=== PATIENT | female | born 1980 | race Hispanic/Latino ===

== ENCOUNTER 2020-02-27 16:20 | Emergency (ER) | payer OTHER, SELFPAY ==
[2020-02-27 16:40] VITALS: BP 100/79; PULSE 76; RESP 16; TEMP 36.8; O2SAT 100
--- NOTE | 2020-02-27 17:16 | ED.URI ---
HPI - URI/Sore Throat General Chief Complaint: Upper Respiratory Infection Stated Complaint: upper respiratory infection Time Seen by Provider: 02/27/20 17:14 Source: patient and RN notes reviewed Mode of arrival: ambulatory Limitations: no limitations History of Present Illness HPI Narrative: 39-year-old female presents with concern for right ear pain for 2 days, sore throat for 4 days and reports nasal congestion, drainage for 4 days as well. Denies fever, cough, malaise. Reports she has been taking Zyrtec with little relief MD elicited complaint: sore throat and other (Ear pain) Related Data Allergies Allergy/AdvReac Type Severity Reaction Status Date / Time No Known Allergies Allergy Verified 02/27/20 16:31 Review of Systems Review of Systems: Narrative: CONSTITUTIONAL: Denies malaise, chills, sweats, or fever. EYES: Denies visual changes, redness, or discharge. ENT: Reports rhinorrhea, congestion, otalgia and sore throat. Denies sinus pain CARDIOVASCULAR: Denies chest pain, palpitations, or edema. RESPIRATORY: Denies cough or dyspnea. GASTROINTESTINAL: Denies abdominal pain, nausea, vomiting, diarrhea SKIN: Denies rash or itching. MUSCULOSKELETAL: Denies myalgia. NEUROLOGIC: Denies headache. All systems reviewed & are unremarkable except as noted in HPI and below PMFSH Social History Social History Gender identity (if verbalized by the patient): Female Comments At time of signature, agree with nursing past medical, surgical, social and family history. There is no relevant family history pertinent to the presenting complaint Exam Narrative: Exam Narrative: GENERAL: Well-appearing, well-nourished, and in no acute distress. HEAD: Normocephalic EYES: PERRLA, conjunctivae clear ENT: Nares clear, turbinates edematous and erythematous, clear discharge. Postnasal drainage noted. Mucous membranes moist. TM pearly alas with dull light reflex bilaterally; no tragal tenderness. Oropharynx erythematous without lesions. Tonsils not enlarged and without exudate, no drooling, no hoarseness, no trismus, uvula midline. NECK: Supple. No lymphadenopathy CHEST: Clear to auscultation, breath sounds equal. No wheezing, rhonchi, rales, or stridor. No respiratory distress, speaks in full sentences. HEART: Regular rate and rhythm. No murmur heard. SKIN: Warm, dry, no rash. NEURO: Alert and oriented x3. PSYCH: Normal mood and affect Course Course Emergency Course: Patient is aware of diagnosis, understands and agrees to treatment plan. Anticipatory guidance given. Patient agrees to follow-up as directed and is aware of reasons to seek care at the emergency department. Portions of this record may have been created with voice recognition software Vital Signs Vital signs: Vital Signs Temperature 98.3 F 02/27/20 16:40 Pulse Rate 76 02/27/20 16:40 Respiratory Rate 16 02/27/20 16:40 Blood Pressure 100/79 02/27/20 16:40 Pulse Oximetry 100 02/27/20 16:40 Temperature 98.3 F 02/27/20 16:40 Pulse Rate 76 02/27/20 16:40 Respiratory Rate 16 02/27/20 16:40 Blood Pressure 100/79 02/27/20 16:40 Pulse Oximetry 100 02/27/20 16:40 Reviewed. MDM - URI/Sore Throat MDM Narrative Medical decision making narrative: Differential diagnosis considered: Strep pharyngitis, allergic rhinitis, upper respiratory tract infection, sinusitis, rhinosinusitis, nasopharyngitis. viral pharyngitis, otitis media, otitis externa, pneumonia, bronchitis, viral cough syndrome, viral syndrome, and influenza. Exam findings show no acute concerns or changes; patient is non-toxic appearing and is in no distress. Patient is appropriate for outpatient treatment and follow-up. Lab Data Attestation: I reviewed the patient's lab results. Labs: Strep Screen Presumptive Negative *(Reference Range: Negative)* Critical Care Time Critical Care Time Critical Care Time: No Discharge Plan Discharge Clinical Impres
== END 2020-02-27 17:28 | disposition home or self-care (01) ==
PROVIDERS: Emergency Provider Nurse Practitioner
DX: J06.9 Acute upper respiratory infection, unspecified (principal)
CPT/HCPCS: 87081; 87880; 99213; G0463

== ENCOUNTER 2020-03-12 01:24 | Emergency (ER) | payer OTHER, SELFPAY ==
--- NOTE | ~2020-03-12 | XR_ITS ---
EXAMINATION: XR lumbar spine 2-3V DATE: 03/12/2020 03:40 INDICATION: Low back pain. TECHNIQUE: 3 views of lumbar spine were obtained. COMPARISON: Lumbar spine radiographs 09/26/2017 FINDINGS: Bone alignment is normal. Vertebral body heights and intervertebral disc heights are normal . The facet joints are unremarkable. There is an intrauterine device in expected position. Surgical c lips in the right upper quadrant are likely from cholecystectomy. IMPRESSION: 1. Normal lumbar spine. Reviewed, dictated and finalized at location A. IMPRESSION: 1. Normal lumbar spine.
[2020-03-12 01:26] VITALS: BP 113/65; PULSE 70; RESP 18; TEMP 37.1; O2SAT 98
--- NOTE | 2020-03-12 03:17 | ED.BACK ---
HPI - Back Pain/Injury General Chief Complaint: Back Pain/Injury Stated Complaint: back pain Time Seen by Provider: 03/12/20 03:11 History of Present Illness HPI Narrative: Patient presents with low back pain for 3 days. Started after she worked out. Radiates down both legs to the feet. She has had back pain before but not this bad. She would rated as a 9 out of 10. She is having difficulty walking. She had to leave work. She took an Aleve without much improvement. She does not have any medical problems. MD elicited complaint: back pain Pertinent past history: prior back pain Onset (ago): day(s) Timing: constant Severity: severe Similar Symptoms Previously: Yes Related Data Allergies Allergy/AdvReac Type Severity Reaction Status Date / Time No Known Allergies Allergy Verified 02/27/20 16:31 Review of Systems Review of Systems: Narrative: CONSTITUTIONAL: Denies fever, chills, or sweats. EYES: Denies visual changes, redness, or discharge. ENT: Denies rhinorrhea, congestion, sore throat, or otalgia. CARDIOVASCULAR: Denies chest pain, palpitations, or edema. RESPIRATORY: Denies cough or dyspnea. GASTROINTESTINAL: Denies abdominal pain, nausea, vomiting, or diarrhea. GENITOURINARY: Denies dysuria or hematuria. SKIN: Denies rash or itching. MUSCULOSKELETAL: She has back pain, with radiation to both legs. NEUROLOGIC: Denies headache, numbness, or weakness. . [facility] Past Medical History Medical History (Updated 03/12/20 @ 03:18 by Cary Gold MD) Sciatica Strain of lumbar region Social History Social History Gender identity (if verbalized by the patient): Female Exam Narrative: Exam Narrative: GENERAL: Well-appearing, well-nourished, and in no acute distress. Slow to move. HEAD: Normocephalic, atraumatic. EYES: PERRLA and EOMI. ENT: Nares clear, no rhinorrhea or epistaxis. Mucous membranes moist. NECK: Supple. CHEST: Clear to auscultation. No respiratory distress. HEART: Regular rate and rhythm. No murmur heard. Normal peripheral pulses. ABDOMEN: Soft, nontender, nondistended, normal active bowel sounds. EXTREMITIES: No edema. SKIN: Warm, dry, no rash. NEURO: No focal deficits. Alert and oriented x3. PSYCH: Normal mood and affect. Back: Tenderness to palpation. Course Reevaluation(s) Reevaluation #1: Went back into check on the patient and tell her the results of her x-rays. They were normal. Her pain is a little bit better. She is ready to call her and go home. Date: 03/12/20 Time: 05:32 Vital Signs Vital signs: Vital Signs Temperature 98.7 F 03/12/20 01:26 Pulse Rate 70 03/12/20 01:26 Respiratory Rate 18 03/12/20 01:26 Blood Pressure 113/65 03/12/20 01:26 Pulse Oximetry 98 03/12/20 01:26 Temperature 98.2 F 03/12/20 04:59 Pulse Rate 76 03/12/20 04:59 Respiratory Rate 16 03/12/20 04:59 Blood Pressure 107/71 03/12/20 04:59 Pulse Oximetry 98 03/12/20 04:59 MDM - Back Pain/Injury Medical Records Attestation: I reviewed the patient's medical records. Imaging Data Attestation: I personally reviewed and interpreted this imaging study as follows: My impression: NAD Discharge Plan Discharge Clinical Impression: Strain of lumbar region Qualifiers: Encounter type: initial encounter Qualified Code(s): S39.012A - Strain of muscle, fascia and tendon of lower back, initial encounter Sciatica Qualifiers: Laterality: bilateral Qualified Code(s): M54.31 - Sciatica, right side Patient Disposition: Home, Self-Care Condition: Stable Prescriptions: New hydrocodone-acetaminophen [Albion] 5-325 mg tablet 1 tablet PO Q4H PRN (Reason: pain) Qty: 10 RF: 0 methocarbamol 750 mg tablet 750 mg PO TID Qty: 20 RF: 0 naproxen sodium [Anaprox DS] 550 mg tablet 550 mg PO BID PRN (Reason: pain) Qty: 14 RF: 0 No Action ipratropium bromide 0.03 % spray,non-aerosol 2 spray NASAL TID PRN (Reason: nasal drainage) Qty: 30 RF: 0 cet
[2020-03-12] MEDS: diazePAM 5 MG TABLET PO (03:41)
[2020-03-12] MEDS: oxyCODONE/ACETAMINOPHEN 5-325 MG TABLET 1 TABLET PO (03:41)
[2020-03-12 04:59] VITALS: BP 107/71; PULSE 76; RESP 16; TEMP 36.8; O2SAT 98
[2020-03-12] MEDS: BELLADONNA ALK/PHENOB ELIX 10 ML, MAG HYDROX/ALUMINUM HYD/SIMETH 30 ML, LIDOCAINE HCL 2... PO (05:29)
[2020-03-12 05:48] VITALS: BP 110/74; PULSE 69; RESP 18; O2SAT 98
== END 2020-03-12 05:49 | disposition home or self-care (01) ==
PROVIDERS: Emergency Provider Emergency Medicine; PCP Family Medicine
DX: S39.012A Strain of muscle, fascia and tendon of lower back, initial encounter (principal); M54.42 Lumbago with sciatica, left side; M54.41 Lumbago with sciatica, right side; X58.XXXA Exposure to other specified factors, initial encounter
CPT/HCPCS: 72100; 99283; A9270

== ENCOUNTER 2020-05-16 17:59 | Outpatient (RCR) | payer OTHER, SELFPAY | END 2020-08-02 23:59 | disposition home or self-care (01) | LOC: ANHLAB 17:59 | PROVIDERS: PCP Family Medicine; Referring Provider Obstetrics & Gynecology; Visit Provider Advanced Practice Midwife | DX: O20.0 Threatened abortion (principal); Z3A.00 Weeks of gestation of pregnancy not specified | CPT/HCPCS: 36415; 84702; 85461; 86850; 86900; 86901 ==

== ENCOUNTER 2020-05-19 00:23 | Outpatient (CLI) | payer OTHER, SELFPAY ==
[2020-05-19 16:54] LABS: SARS-CoV-2 RNA PCR Negative
== END 2020-05-19 00:24 | disposition home or self-care (01) ==
PROVIDERS: PCP Family Medicine; Visit Provider Obstetrics & Gynecology
DX: Z01.812 Encounter for preprocedural laboratory examination (principal); Z20.828 Contact with and (suspected) exposure to other viral communicable diseases
CPT/HCPCS: 87635; C9803; U0003

== ENCOUNTER 2020-05-20 15:37 | Observation (INO) | payer OTHER, SELFPAY ==
--- NOTE | ~2020-05-20 | US_ITS ---
EXAMINATION: US OB <=14 wk fetus w TV DATE: 05/20/2020 18:20 INDICATION: Miscarriage with intrauterine device in place. TECHNIQUE: Real-time transabdominal and transvaginal pelvic ultrasound was performed. COMPARISON: None. FINDINGS: TRANSABDOMINAL ULTRASOUND: The uterus measures 8.5 x 5.1 x 5.7 cm. TRANSVAGINAL ULTRASOUND: There is a fluid collection in the endometrial complex with intradecidual si gn with mean diameter of 9 mm which correlates with an estimated gestational age of 5 weeks and 5 day s. No yolk sac or pole identified. There is an intrauterine device in expected position. The ri ght ovary measures 3.6 x 2.0 x 2.7 cm. The left ovary is not visualized. There is trace free fluid in the pelvis. IMPRESSION: 1. Fluid collection in the endometrial complex with intradecidual sign that may be a gestational sac with estimated gestational age of 5 weeks and 5 days. Ectopic and spontaneous are not excluded. Correlate with serial beta-hCGs. 2. Intrauterine device in expected position. Reviewed, dictated and finalized at location A. IMPRESSION: 1. Fluid collection in the endometrial complex with intradecidual sign that ma y be a gestational sac with estimated gestational age of 5 weeks and 5 days. Ec topic and spontaneous are not excluded. Correlate with seria l beta-hCGs. 2. Intrauterine device in expected position.
[2020-05-20 15:40] VITALS: BP 102/66; PULSE 69; RESP 18; TEMP 36.8; O2SAT 100
[2020-05-20 15:59] LABS: Basophils Percent Auto 0.5 % (0.2-1.2); Eosinophils Absolute Auto 0.2 K/mm3 (0-0.3); Eosinophils Percent Auto 2.2 % (0-4.4); Hematocrit 38.7 % (37.0-47.0); Hemoglobin 12.9 g/dL (12.0-15.0); Immature Granulocyte Absolute 0.08 K/mm3 (0.00-0.031); Immature Granulocyte Percent A 0.9 % (0-0.5); Lymphocytes Absolute Auto 2.21 K/mm3 (0.9-3.2); Lymphocytes Percent Auto 25.8 % (18.3-44.2); Mean Corpuscular HGB Conc 33.3 g/dl (32-36); Mean Corpuscular Hemoglobin 29.3 pg (26-34); Mean Corpuscular Volume 87.8 fl (80-100); Mean Platelet Volume 10.5 fl (7.4-10.4); Monocytes Absolute Auto 0.6 K/mm3 (0.1-0.6); Neutrophils Absolute Auto 5.4 K/mm3 (1.3-6.7); Neutrophils Percent Auto 63.6 % (45.5-73.1); Platelet Count Result 251 k/mm3 (150-375); Red Blood Count 4.41 M/mm3 (4.2-5.4); Red Cell Distribution Width 13.6 % (11.5-14.5); White Blood Count 8.6 K/mm3 (4.5-10.0)
--- NOTE | 2020-05-20 17:32 | ED.FEMALEGU ---
HPI - Female Genitourinary General Chief complaint: Vaginal Bleeding Stated complaint: vaginal bleeding/pain Time Seen by Provider: 05/20/20 17:17 Source: patient Mode of arrival: ambulatory Limitations: no limitations History of Present Illness HPI Narrative: 40-year-old female Called [facility] with complaints of increased vaginal bleeding and cramps and was referred to the ER 2 weeks ago it appears she was probably seen in the office and diagnosed with a and hCGs trended up but not at an appropriate rate and are now going back down On Saturday of this week she was seen there for vaginal bleeding and ultrasound was done She was supposed to have the IUD removed and a D&C done today but it apparently was canceled due to delays getting preauthorization from insurance And when she called the office she was sent to the ER but is not sure what the plan was supposed to be She is using rouoghly a pad every two hours Related Data Home Medications Medication Instructions Recorded Confirmed L.acid-L.casei-B.bif-B.hever-FOS 1 cap PO DAILY 05/18/20 05/18/20 [Probiotic Blend] Allergies Allergy/AdvReac Type Severity Reaction Status Date / Time No Known Allergies Allergy Verified 05/20/20 15:47 [facility] Past Medical History Medical History (Updated 05/20/20 @ 19:36 by Camilo Casas MD) Sciatica Strain of lumbar region Social History Social History Smoking status: Never smoker Gender identity (if verbalized by the patient): Female Sexual Orientation (if Verbalized by the Patient): Straight or Heterosexual Exam Const: General: healthy appearing, no acute distress and well developed Nutritional Appearance: well nourished Orientation/consciousness: patient oriented x3 (alert) and Other orientation findings (Alert) Limitations: no limitations HENMT: Head: normocephalic and atraumatic Ears: external ears normal General nose exam: No nasal discharge present Face and sinus: face symmetric Mouth: Yes lip normal, Yes tongue normal and Yes moist mucous membranes Throat: other (No exudate, no erythema) Eyes: Conjunctivae: conjunctivae normal Sclera: sclerae normal EOM: EOMs intact bilaterally Neck: Neck: full ROM, no lymphadenopathy and supple Thyroid: thyroid normal Chest: Chest palpation & inspection: tenderness Resp: Effort & Inspection: normal respiratory effort Auscultation: other (breath sounds equal) Cardio: Heart sounds: no gallops GI: Inspection: non-distended GI Palp: No abdominal tenderness, Yes Soft to palpation and Yes Tenderness to palpation present (GI) (mild, lower) Auscultation: other (bowel sounds present) : General: Yes no CVA tenderness Back/Spine/Pelvis: Thoracic/Lumbar Spine: thoracic and lumbar spine normal to inspection Skin: General skin exam: normal color and no rashes or lesions noted Neuro: General: patient oriented x3 (alert), moves all extremities and no focal motor deficits Cranial nerves: Yes facial symmetry Speech: normal speech Motor exam (neuro): Motor abnormalities not present Extrem: General: normal to inspection, full ROM and no pedal edema Psych: Affect: normal affect Course Vital Signs Vital signs: Vital Signs Temperature 36.8 C 05/20/20 15:40 Pulse Rate 69 05/20/20 15:40 Respiratory Rate 18 05/20/20 15:40 Blood Pressure 102/66 05/20/20 15:40 Pulse Oximetry 100 05/20/20 15:40 Temperature 36.8 C 05/20/20 15:40 Pulse Rate 69 05/20/20 15:40 Respiratory Rate 18 05/20/20 15:40 Blood Pressure 102/66 05/20/20 15:40 Pulse Oximetry 100 05/20/20 15:40 MDM - Female Genitourinary MDM Narrative Medical decision making narrative: d/w manoj rodriguez & mustapha, will obs, plan for OR in the am Lab Data Result diagrams: 05/20/20 15:52 Labs: Lab Results 05/20/20 05/20/20 Range/Units 15:52 15:52 WBC 8.6 (4.5-10.0) K/mm3 RBC 4.41 (4.2-5.4) M/mm3 Hgb 12.9 (12.0-15.0) g
[2020-05-20] MEDS: LACTATED RINGERS 1,000 ML 125 ML IV CONT (20:04)
[2020-05-20] MEDS: KETOROLAC 30 MG/ML VIAL (*BKC) IV PUSH (20:04)
[2020-05-20 20:20] VITALS: BP 104/62; PULSE 68; RESP 16; O2SAT 99
--- NOTE | 2020-05-20 21:16 | ADMGEN ---
This patient, Hayde Pineda, was admitted to Medical Room [facility]- on 05/20/19 @ 2110. Patient/family oriented to hospital policies and general routines including ID bracelet, bed and alarms, visiting hours, pain management, procedures, bathroom and other care routines, personal items, smoking policy, room service/diet, and visiting hours. Valuables list has been completed. Information on how to activate the Rapid Response Team has been discussed. Patient/Family are encouraged to report perceived risks to care and to ask questions if they do not understand what they are told or what they should do.
[2020-05-20 21:28] VITALS: BP 105/71; PULSE 72; RESP 16; O2SAT 100
[2020-05-20 21:41] VITALS: BP 102/57; PULSE 67; RESP 16; TEMP 36.6; O2SAT 100; BMI 25.9
[2020-05-21] MEDS: LACTATED RINGERS 1,000 ML 125 ML IV CONT (05:15)
[2020-05-21] MEDS: KETOROLAC 15 MG/ML VIAL (*BKC) IV PUSH ×2 (05:22→14:14)
[2020-05-21 06:10] VITALS: BP 103/51; PULSE 78; RESP 16; TEMP 36.5; O2SAT 98
[2020-05-21 06:12] VITALS: BP 103/51; BP 107/67; BP 99/41; PULSE 78; RESP 16; TEMP 36.5; O2SAT 98
[2020-05-21 06:14] VITALS: BP 103/51; PULSE 78; RESP 16; TEMP 36.5; O2SAT 98
[2020-05-21 06:31] LABS: Basophils Percent Auto 0.5 % (0.2-1.2); Eosinophils Absolute Auto 0.2 K/mm3 (0-0.3); Eosinophils Percent Auto 2.8 % (0-4.4); Hematocrit 36.8 % (37.0-47.0); Hemoglobin 12.2 g/dL (12.0-15.0); Immature Granulocyte Absolute 0.09 K/mm3 (0.00-0.031); Immature Granulocyte Percent A 1.1 % (0-0.5); Lymphocytes Absolute Auto 2.12 K/mm3 (0.9-3.2); Lymphocytes Percent Auto 26.9 % (18.3-44.2); Mean Corpuscular HGB Conc 33.2 g/dl (32-36); Mean Corpuscular Hemoglobin 29.1 pg (26-34); Mean Corpuscular Volume 87.8 fl (80-100); Mean Platelet Volume 10.4 fl (7.4-10.4); Monocytes Absolute Auto 0.6 K/mm3 (0.1-0.6); Monocytes Percent Auto 7.1 % (2.6-8.5); Neutrophils Absolute Auto 4.8 K/mm3 (1.3-6.7); Neutrophils Percent Auto 61.6 % (45.5-73.1); Platelet Count Result 215 k/mm3 (150-375); Red Blood Count 4.19 M/mm3 (4.2-5.4); Red Cell Distribution Width 13.5 % (11.5-14.5); White Blood Count 7.9 K/mm3 (4.5-10.0)
--- NOTE | 2020-05-21 08:34 | PM.IMHP ---
H&P: HPI History of Present Illness Date/Time: 05/21/20 08:34 Chief complaint: incomplete miscarriage Narrative: Hayde Pineda is a 40 year old female with known abnormal (based on abnormally rising HCG levels and abnormal U/S in office) came to ER 05/20 due to heavier bleeding. She has been bleeding off and on for about 3 weeks, most days spotting but heavier the last 1-2 days changing protection every 2 hours. No CP, SOB, dizziness. Severe cramping. She has IUD in place which 01/2020 per her report. Review of Systems Review of Systems: All systems reviewed & are unremarkable except as noted in HPI and below PMFSH Past Medical History Medical History (Updated 05/21/20 @ 08:42 by Mabel Quiroz MD) Sciatica Strain of lumbar region Surgical History Surgical History (Updated 05/21/20 @ 08:41 by Mabel Quiroz MD) Hx of section Hx of cholecystectomy Family History Family History Father Diabetes mellitus Polycystic kidney disease Social History Social History Smoking status: Never smoker Alcohol intake: never Substance use: never Substance use type: does not use Gender identity (if verbalized by the patient): Female Sexual Orientation (if Verbalized by the Patient): Straight or Heterosexual Meds Home Medications and Allergies Home Medications Medication Instructions Recorded Confirmed Type L.acid-L.casei-B.bif-B.hever-FOS 1 cap PO DAILY 05/18/20 05/20/20 History [Probiotic Blend] cetirizine-pseudoephedrine 1 tablet PO DAILY PRN 05/20/20 05/20/20 History [Zyrtec-D] fluticasone propionate [Allergy 2 spray INTRANASAL QID PRN 05/20/20 05/20/20 History Relief (fluticasone)] Allergies Allergy/AdvReac Type Severity Reaction Status Date / Time No Known Allergies Allergy Verified 05/20/20 15:47 Vital Signs Vital Signs - 24 hr 05/20/20 15:40 05/20/20 20:20 05/20/20 21:28 Temperature 36.8 C Pulse Rate 69 68 72 Respiratory Rate 18 16 16 Blood Pressure 102/66 104/62 105/71 Pulse Oximetry 100 99 100 05/20/20 21:41 05/21/20 06:10 05/21/20 06:12 Temperature 36.6 C 36.5 C 36.5 C Pulse Rate 67 78 78 Respiratory Rate 16 16 16 Blood Pressure 102/57 L 103/51 L 107/67 Pulse Oximetry 100 98 98 05/21/20 06:14 Temperature 36.5 C Pulse Rate 78 Respiratory Rate 16 Blood Pressure 103/51 L Pulse Oximetry 98 Exam Const: General: no acute distress Resp: Auscultation: clear to auscultation bilaterally Cardio: Rate: regular rate Rhythm: regular rhythm GI: Inspection: non-distended GI Palp: Yes Soft to palpation and No Tenderness to palpation present (GI) : Speculum Exam - Vagina: vaginal bleeding (similar to menses) Psych: Mental Status: mental status grossly normal H&P: Results Labs Labs: Short CBC 05/20/20 05/21/20 Range/Units 15:52 06:24 WBC 8.6 7.9 (4.5-10.0) K/mm3 Hgb 12.9 12.2 (12.0-15.0) g/dL Hct 38.7 36.8 L (37.0-47.0) % Plt Count 251 215 (150-375) k/mm3 Assessment and Plan Assessment and plan (1) Incomplete : Code(s): O03.4 - Incomplete spontaneous without complication Status: Acute Assessment and Plan: She is scheduled for D&C Wednesday 05/23, so I offered to proceed with D&C while she's already here or let her go home and proceed with D&C Saturday. She prefers to proceed today and signed consent after R/B/C/A discussed. She expressed understanding and wishes to proceed. Rh+ so no Rhogam needed (2) IUD : Code(s): O99.89 - Other specified diseases and conditions complicating , childbirth and the puerperium; T83.31XA - Breakdown (mechanical) of intrauterine contraceptive device, initial encounter Status: Acute Assessment and Plan: IUD 01/2020. She is aware it needs to be removed to accomplish D&C
--- NOTE | 2020-05-21 08:50 | WPDANESEPPF ---
Anes - Initial Pre Proc Eval Procedure: suction D&C, IUD removal Date/Time: 05/21/20 08:50 Surgeon: Mabel Quiroz MD Pre Op Diagnosis: incomplete miscarriage Patient Data Age: 40 Gender: F Height: 1.55 m Weight: 62.3 kg Last Vital Signs Temp 36.5 C 05/21/20 06:14 Pulse 78 05/21/20 06:14 Resp 16 05/21/20 06:14 BP 103/51 L 05/21/20 06:14 Pulse Ox 98 05/21/20 06:14 Allergies Allergy/AdvReac Type Severity Reaction Status Date / Time No Known Allergies Allergy Verified 05/20/20 15:47 Home Medications Medication Instructions Recorded Confirmed Type L.acid-L.casei-B.bif-B.hever-FOS 1 cap PO DAILY 05/18/20 05/20/20 History [Probiotic Blend] cetirizine-pseudoephedrine 1 tablet PO DAILY PRN 05/20/20 05/20/20 History [Zyrtec-D] fluticasone propionate [Allergy 2 spray INTRANASAL QID PRN 05/20/20 05/20/20 History Relief (fluticasone)] Laboratory Tests 05/20/20 05/20/20 05/21/20 15:52 15:52 06:24 WBC 8.6 K/mm3 K/mm3 7.9 K/mm3 K/mm3 (4.5-10.0) (4.5-10.0) RBC 4.41 M/mm3 M/mm3 4.19 M/mm3 L M/mm3 (4.2-5.4) (4.2-5.4) Hgb 12.9 g/dL g/dL 12.2 g/dL g/dL (12.0-15.0) (12.0-15.0) Hct 38.7 % % 36.8 % L % (37.0-47.0) (37.0-47.0) MCV 87.8 fl fl 87.8 fl fl (80-100) (80-100) MCH 29.3 pg pg 29.1 pg pg (26-34) (26-34) MCHC 33.3 g/dl g/dl 33.2 g/dl g/dl (32-36) (32-36) RDW 13.6 % % 13.5 % % (11.5-14.5) (11.5-14.5) Plt Count 251 k/mm3 k/mm3 215 k/mm3 k/mm3 (150-375) (150-375) MPV 10.5 fl H fl 10.4 fl fl (7.4-10.4) (7.4-10.4) Immature Gran % (Auto) 0.9 % H % 1.1 % H % (0-0.5) (0-0.5) Neut % (Auto) 63.6 % % 61.6 % % (45.5-73.1) (45.5-73.1) Lymph % (Auto) 25.8 % % 26.9 % % (18.3-44.2) (18.3-44.2) Smyth % (Auto) 7.0 % % 7.1 % % (2.6-8.5) (2.6-8.5) Eos % (Auto) 2.2 % % 2.8 % % (0-4.4) (0-4.4) Baso % (Auto) 0.5 % % 0.5 % % (0.2-1.2) (0.2-1.2) Lymph # (Auto) 2.21 K/mm3 K/mm3 2.12 K/mm3 K/mm3 (0.9-3.2) (0.9-3.2) Smyth # (Auto) 0.6 K/mm3 K/mm3 0.6 K/mm3 K/mm3 (0.1-0.6) (0.1-0.6) Eos # (Auto) 0.2 K/mm3 K/mm3 0.2 K/mm3 K/mm3 (0-0.3) (0-0.3) Baso # (Auto) 0.0 K/mm3 K/mm3 0.0 K/mm3 K/mm3 (0.0-0.1) (0.0-0.1) Abs Immat Gran (auto) 0.08 K/mm3 H K/mm3 0.09 K/mm3 H K/mm3 (0.00-0.031) (0.00-0.031) Absolute Neuts (auto) 5.4 K/mm3 K/mm3 4.8 K/mm3 K/mm3 (1.3-6.7) (1.3-6.7) Absolute Nucleated RBC 0.0 K/mm3 K/mm3 0.0 K/mm3 K/mm3 (0.0-0.012) (0.0-0.012) Nucleated RBC % 0.0 % % 0.0 % % (0.0-0.2) (0.0-0.2) Beta HCG, Quant 8237.20 mIU/ML mIU/ML Patient hx anesthesia problems: post op nausea/vomiting Family hx anesthesia problems: none PMFSH Past Medical History Medical History (Updated 05/21/20 @ 08:50 by Ramy Pickett DO) Sciatica Seasonal allergies Strain of lumbar region Surgical History Surgical History (Updated 05/21/20 @ 08:41 by Mabel Quiroz MD) Hx of section Hx of cholecystectomy Family History Family History Father Diabetes mellitus Polycystic kidney disease Social History Social History Smoking status: Never smoker Alcohol intake: never Substance use: never Substance use type: does not use Gender identity (if verbalized by the patient): Female Sexual Orientation (if Verbalized by the Patient): Straight or Heterosexual Anes - Eval Final PreProcedure Day of Procedure 05/21/20 08:50 Patient weight: overweight Heart: regular rate and rhythm Lungs: clear to auscultation and normal air movement Airway: Mallampati scale class II Neurological: alert and oriented Last oral intake: >/= 8 hours ASA classification: II Emergent: yes Anesthetic plan: proceed Anesthesia type and monit
--- NOTE | 2020-05-21 11:41 | PM.PROC ---
Procedure Note - Detailed Date of procedure: 05/21/20 Pre-op diagnosis: incomplete miscarriage Post-op diagnosis: same Procedure performed: Suction D&C and IUD removal Description of procedure: She was taken to the operating room where she was sedated and placed in the dorsal lithotomy position. A speculum was placed in the vagina. The anterior lip of the cervix was grasped with single-tooth tenaculum. The IUD string was not visible. The cervix was dilated to allow passage of a 10. Curved suction curette. Couple passes were made with the suction curette with small amounts of products of conception obtained and the IUD also was visible in the suction canister intact. A gentle sharp curettage was then performed to loosen any further material inside the endometrial canal. One more pass was made with the suction curette with minimal tissue and blood obtained. The tenaculum was removed from the cervix. Both tenaculum sites were bleeding slightly. Pressure was held with ring forceps and Allis clamp until excellent hemostasis was assured. The speculum was then removed from the vagina. She tolerated the procedure well. Sponge, lap, and instrument counts were correct x2. She was taken to the recovery room in stable condition. Anesthesia: MAC Surgeon: Mabel Quiroz MD Estimated blood loss (mL): 50 Drains: No Packing: No Pathology: yes Complications: No immediate complications Condition: stable Disposition: PACU Findings: small amounts POCs, IUD string not visible but IUD removed via suction (IUID intact)
--- NOTE | 2020-05-21 13:36 | PC.NURSE ---
Pt. returned to room 250 at 13:35 from post-op recovery. Pt. is resting comfortably and this nurse will continue to monitor pt.
[2020-05-21 14:00] VITALS: BP 97/46; PULSE 72; RESP 16; TEMP 36.9; O2SAT 100
[2020-05-21 15:41] VITALS: BP 97/56; PULSE 77; RESP 16; TEMP 37; O2SAT 99
--- NOTE | 2020-05-31 14:10 | P.DS_ITS ---
DS: Admitting Diagnosis Admitting Diagnosis Admitting Diagnosis: incomplete miscarriage DS: Discharge Diagnosis Discharge Diagnosis (1) Incomplete : Code(s): O03.4 - Incomplete spontaneous without complication Status: Acute (2) IUD : Code(s): O99.89 - Other specified diseases and conditions complicating , childbirth and the puerperium; T83.31XA - Breakdown (mechanical) of intrauterine contraceptive device, initial encounter Status: Acute DS: Summary Status at Discharge Functional status at discharge: independent ambulation Overall status at discharge: patient is progressing back to baseline Time Spent with Patient Time attestation: Total time spent providing and/or coordinating discharge services: Time spent: Less than 30 minutes Discharge Plan Discharge Attending physician on discharge: Mabel Quiroz Consulting providers: Jose Smiley V. Discharging Clinician: Mabel Quiroz Patient Disposition: Home, Self-Care Activity: may shower and pelvic rest Diet: regular Patient Instructions: Antibiotic Form Stand Alone Forms: General Discharge Information Follow-up/Referrals: Bishop Armando MD [Physician] - 1 Week Discharge Medications: New ibuprofen 600 mg tablet 600 mg PO Q6H PRN (Reason: pain) Qty: 60 RF: 0 Continued Probiotic Blend 2 billion cell-50 mg Capsule 1 cap PO DAILY RF: 0 cetirizine-pseudoephedrine [Zyrtec-D] 5-120 mg tablet extended release 12 hr 1 tablet PO DAILY PRN (Reason: Allergy Symptoms) RF: 0 fluticasone propionate [Allergy Relief (fluticasone)] 50 mcg/actuation spray, suspension 2 spray INTRANASAL QID PRN (Reason: Nasal Congestion) RF: 0 Date of admission: 05/20/20 19:31 Primary Care Provider: Darya Jenkins Admitting Provider: Mabel Quiroz Discharge Date/Time: 05/21/20 18:19 Attending physician on admission: Mabel Quiroz Condition: Stable
== END 2020-05-21 18:19 | disposition home or self-care (01) ==
LOC: ANHED 19:53 → ANH2MED 20:17
PROVIDERS: Emergency Medicine; Admitting Provider Obstetrics & Gynecology; Emergency Provider Emergency Medicine; PCP Family Medicine; Visit Provider Obstetrics & Gynecology
DX: O03.4 Incomplete spontaneous abortion without complication (principal); T83.32XA Displacement of intrauterine contraceptive device, initial encounter; Y76.8 Miscellaneous obstetric and gynecological devices associated with adverse incidents, not elsewhere classified
CPT/HCPCS: 59812; 36415; 76801; 76817; 84702; 85025; 85461; 88305; 96374; 96376; 99285; A9270; G0378; G0379; J1100; J1885; J2001; J2250; J2405; J2704; J3010; J7120

== ENCOUNTER 2020-11-29 10:17 | Outpatient (RCR) | payer OTHER, SELFPAY | END 2020-11-29 23:59 | disposition home or self-care (01) | LOC: ANHAUDIO 10:17 | PROVIDERS: PCP Family Medicine; Referring Provider Family Medicine; Visit Provider Family Medicine | DX: Z46.1 Encounter for fitting and adjustment of hearing aid (principal) | CPT/HCPCS: 92592 ==

== ENCOUNTER 2021-02-27 00:08 | Emergency (ER) | payer OTHER, SELFPAY ==
[2021-02-27 00:18] VITALS: BP 108/65; PULSE 71; RESP 16; TEMP 36.6; O2SAT 98
[2021-02-27 00:28] VITALS: BP 108/65; O2SAT 98
--- NOTE | 2021-02-27 00:38 | ED.EAR ---
HPI - Ear Problem General Chief complaint: Ear Stated complaint: tinnitus Time Seen by Provider: 02/27/21 00:13 History of Present Illness HPI Narrative: Pain and thrombing noise in her left ear today. She reports that she has significant hearing loss in both ears since infection 9 years ago. Since that time this has happened periodically. She is usually treated with steroid and decongestant. No fever, chills, sinus pressure. Related Data Allergies Allergy/AdvReac Type Severity Reaction Status Date / Time No Known Allergies Allergy Verified 02/27/21 00:30 Review of Systems Review of Systems: All systems reviewed & are unremarkable except as noted in HPI and below Constitutional: Constitutional: Denies chills and Denies fever(s) Eyes: Eyes: Reports no additional eye complaints ENT: Reports as per HPI, Denies dizziness and Denies sore throat Cardiovascular: Cardiovascular: Denies chest pain Respiratory: Respiratory: Denies cough and Denies dyspnea Genitourinary: Genitourinary: Reports no additional female genitourinary complaints PMFSH Past Medical History Medical History Sciatica Seasonal allergies Strain of lumbar region Surgical History Surgical History Hx of section Hx of cholecystectomy Family History Family History Father Diabetes mellitus Polycystic kidney disease Social History Social History Smoking status: Never smoker Alcohol intake: never Substance use: never Substance use type: does not use Gender identity (if verbalized by the patient): Female Exam Const: General: healthy appearing, no acute distress and alert Orientation/consciousness: patient oriented x3 HENMT: Head: normal to inspection Ears: external ears normal, TM's normal bilaterally and EAC's normal Face and sinus: sinuses nontender Eyes: Pupils: Equal, round and reactive pupils present Neck: Neck: normal visual inspection and no lymphadenopathy Resp: Effort & Inspection: normal respiratory effort Auscultation: clear to auscultation bilaterally Cardio: Rate: regular rate Rhythm: regular rhythm Neuro: General: patient oriented x3, moves all extremities, no focal motor deficits and CN's II-XI intact bilaterally Speech: normal speech Gait exam (Neuro): Normal gait present Extrem: General: normal to inspection Course Vital Signs Vital signs: Vital Signs Temperature 36.6 C 02/27/21 00:18 Pulse Rate 71 02/27/21 00:18 Respiratory Rate 16 02/27/21 00:18 Blood Pressure 108/65 02/27/21 00:18 Pulse Oximetry 98 02/27/21 00:18 Temperature 36.6 C 02/27/21 00:18 Pulse Rate 97 02/27/21 03:10 Respiratory Rate 22 H 02/27/21 03:10 Blood Pressure 113/75 02/27/21 03:10 Pulse Oximetry 97 02/27/21 03:10 Medical Decision Making MDM Narrative Medical decision making narrative: I am not sure of the underlying cause for her symptoms. I will start her usual treatment and encourage follow-up with her ENT. Medical Records Medical records reviewed: Yes I reviewed the external patient's medical records. Vital Signs Vital Signs: Vital Signs Temperature 36.6 C 02/27/21 00:18 Pulse Rate 71 02/27/21 00:18 Respiratory Rate 16 02/27/21 00:18 Blood Pressure 108/65 02/27/21 00:18 Pulse Oximetry 98 02/27/21 00:18 Temperature 36.6 C 02/27/21 00:18 Pulse Rate 97 02/27/21 03:10 Respiratory Rate 22 H 02/27/21 03:10 Blood Pressure 113/75 02/27/21 03:10 Pulse Oximetry 97 02/27/21 03:10 Discharge Plan Discharge Clinical Impression: Tinnitus Qualifiers: Laterality: left Qualified Code(s): H93.12 - Tinnitus, left ear Patient Disposition: Home, Self-Care Condition: Stable Instructions: Tinnitus (ED) Prescriptions
[2021-02-27 01:01] VITALS: BP 100/89; PULSE 82; RESP 16; O2SAT 94
[2021-02-27] MEDS: predniSONE 20 MG TABLET 60 MG PO (01:30)
[2021-02-27] MEDS: PSEUDOEPHEDRINE HCL 30 MG TABLET 60 MG PO (01:32)
[2021-02-27] MEDS: MECLIZINE HCL 25 MG TABLET PO (01:32)
[2021-02-27 03:10] VITALS: BP 113/75; PULSE 97; RESP 22; O2SAT 97
== END 2021-02-27 03:12 | disposition home or self-care (01) ==
PROVIDERS: Emergency Provider Emergency Medicine
DX: H93.12 Tinnitus, left ear (principal)
CPT/HCPCS: 99283; A9270; J7512

== ENCOUNTER 2022-06-23 11:52 | Observation (INO) | payer OTHER, SELFPAY ==
[2022-06-23 12:22] VITALS: BP 104/60; PULSE 98
[2022-06-23 12:30] VITALS: BP 105/59; PULSE 105; TEMP 37
[2022-06-23 12:31] VITALS: BMI 29.2
--- NOTE | 2022-06-23 12:32 | OBADM ---
This patient, Hayde Pineda, admitted to the OB room 116 for observation for elevated blood glucose of 284 at home after breakfast. Patient/family oriented to hospital policies and general routines including ID bracelet, bed and alarms, visiting hours, pain management, procedures, bathroom and other care routines, personal items, smoking policy, room service/diet, and visiting hours. Patient/Family are encouraged to report perceived risks to care and to ask questions if they do not understand what they are told or what they should do.
[2022-06-23 12:44] LABS: Glucose Point of Care 112 mg/dl (65-105)
[2022-06-23 12:45] VITALS: BP 101/64; PULSE 99
[2022-06-23 12:58] LABS: Add Urine Microscopic? YES; Appearance Urine Cloudy (Clear); Bacteria Urine 3+ /hpf; Bilirubin Urine Negative (Negative); Blood Urine Negative (Negative); Color Urine Yellow (Yellow); Glucose Urine UA Negative (Negative); Ketones Urine 1+ mg/dL (Negative); Leukocyte Esterase Ur Negative LEU/UL (Negative); Mucus Urine Rare /lpf; Nitrate Urine Negative (Negative); Protein Urine Negative (Negative); RBC Urine 0-2 /hpf (0-2); Specific Grav Ur 1.017 (1.001-1.035); Squamous Epithelial Cell Urine Many /hpf (Few)
[2022-06-23] MEDS: LACTATED RINGERS 1,000 ML 999 ML IV CONT (13:09)
[2022-06-23] MEDS: ONDANSETRON INJ 4 MG/2 ML VIAL IV PUSH (13:10)
[2022-06-23 13:21] VITALS: BP 102/64; PULSE 98
[2022-06-23 13:31] VITALS: BP 98/60; PULSE 93
[2022-06-23 14:00] VITALS: BP 97/66; PULSE 93
--- NOTE | 2022-07-02 07:45 | PM.OBTRLD ---
OB - Triage/Final Diagnosis Visit Information Comments/Additional reasons for admission: I have assessed the risk for this patient, Hayde Pineda, and determined that she would benefit from observation care. Evaluation Laboratory results: Laboratory Tests 06/23/22 06/23/22 12:20 12:31 POC Capillary Glucose 112 H Urine Color Yellow Urine Appearance Cloudy H Urine pH 6.0 Ur Specific [place] 1.017 Urine Protein Negative Urine Glucose (UA) Negative Urine Ketones 1+ H Ur Blood (Man) Negative Urine Nitrate Negative Urine Bilirubin Negative Urine Urobilinogen 2.0 H Leukocyte Esterase Rfl Negative Urine RBC 0-2 Urine WBC 7-9 H Ur Squamous Epith Cells Many H Urine Bacteria 3+ H Urine Mucus Rare Final Diagnosis (1) Elevated glucose level: Code(s): R73.09 - Other abnormal glucose Status: Acute
== END 2022-06-23 14:49 | disposition home or self-care (01) ==
PROVIDERS: Admitting Provider Obstetrics & Gynecology; Visit Provider Obstetrics & Gynecology
DX: O99.810 Abnormal glucose complicating pregnancy (principal); Z3A.30 30 weeks gestation of pregnancy
CPT/HCPCS: 81001; 82948; 87086; 87088; 96361; 96374; G0378; G0379; J2405; J7120

== ENCOUNTER 2022-08-07 15:59 | Inpatient (IN) | payer OTHER, SELFPAY ==
--- NOTE | 2022-07-31 16:16 | PC.NURSE ---
Verified with OR schedule and patient--C/S with bilateral salpingectomy on 08/24/22 at 0730 Patient given requisition for lab draw on 08/23/22
[2022-08-07] VITALS (47 sets, daily range): BP systolic 106–135; BP diastolic 58–94; PULSE 70–116; RESP 16–20; TEMP 36.5–37; O2SAT 79–100; BMI 31.2
--- NOTE | 2022-08-07 15:59 | LDADM ---
This patient, Hayde Pineda, was admitted to Labor/Delivery/Recovery 120 on 08/07/22 at 15:59. Plans for labor, pain management and were discussed with patient. Patient/family oriented to hospital policies and general routines including ID bracelet, bed and alarms, visiting hours, pain management, procedures, bathroom and other care routines, personal items, smoking policy, room service/diet and guest tray routines, security routines, and visiting hours. Patient/Family are encouraged to report perceived risks to care and to ask questions if they do not understand what they are told or what they should do. See OBIX for further documentation.
[2022-08-07] MEDS: LACTATED RINGERS 1,000 ML 125 ML IV CONT ×2 (16:39→18:10)
[2022-08-07 16:48] LABS: Basophils Percent Auto 0.4 % (0.2-1.2); Eosinophils Absolute Auto 0.1 K/mm3 (0-0.3); Eosinophils Percent Auto 0.9 % (0-4.4); Hematocrit 36.8 % (37.0-47.0); Hemoglobin 11.5 g/dL (12.0-15.0); Immature Granulocyte Absolute 0.26 K/mm3 (0.00-0.031); Immature Granulocyte Percent A 2.5 % (0-0.5); Lymphocytes Absolute Auto 1.78 K/mm3 (0.9-3.2); Mean Corpuscular HGB Conc 31.3 g/dl (32-36); Mean Corpuscular Hemoglobin 24.7 pg (26-34); Monocytes Absolute Auto 0.6 K/mm3 (0.1-0.6); Monocytes Percent Auto 5.3 % (2.6-8.5); Neutrophils Absolute Auto 7.8 K/mm3 (1.3-6.7); Neutrophils Percent Auto 73.9 % (45.5-73.1); Platelet Count Result 303 k/mm3 (150-375); Red Blood Count 4.66 M/mm3 (4.2-5.4); Red Cell Distribution Width 17.1 % (11.5-14.5); White Blood Count 10.5 K/mm3 (4.5-10.0)
[2022-08-07 17:59] LABS: Glucose Point of Care 63 mg/dl (65-105)
[2022-08-07 18:03] LABS: Alanine Aminotransferase 142 U/L (6-35); Albumin Level 3.1 g/dL (3.5-5.1); Alkaline Phosphatase 212 U/L (38-126); Anion Gap 7 mmol/L (8-16); Aspartate Amino Transferase 64 U/L (14-36); Bilirubin,Total 0.4 mg/dL (0.2-1.3); Blood Urea Nitrogen 14 mg/dL (7-17); Carbon Dioxide 14 mmol/L (22-30); Chloride 114 mmol/L (98-107); Estimated CRCL calculation 75 ml/min; Estimated Glomerular Filt Rate > 60; Glucose 67 mg/dL (65-110); Potassium 4.1 mmol/L (3.4-5.0); Sodium 135 mmol/L (137-145)
[2022-08-07] MEDS: DEXTROSE 5%/0.45% SOD CHL 1,000 ML 50 ML IV CONT (18:10)
--- NOTE | 2022-08-07 18:12 | WPDANESEPPF ---
Anes - Initial Pre Proc Eval Procedure: Operation Date: 08/07/22 20:00 Proposed Procedures p Repeat Section with Bilateral Salpingectomy - Clarisa Anne MD Date/Time: 08/07/22 18:12 Surgeon: Clarisa Anne MD Pre Op Diagnosis: Prior csection, sterilization Patient Data Age: 42 Gender: F Height: 1.55 m Weight: 75 kg Last Vital Signs Pulse 89 08/07/22 17:00 BP 121/79 08/07/22 17:00 Allergies Allergy/AdvReac Type Severity Reaction Status Date / Time No Known Allergies Allergy Verified 07/31/22 15:53 Home Medications Medication Instructions Recorded Confirmed Type metoclopramide HCl 10 mg tablet 10 mg PO Q6H PRN Nausea 06/23/22 08/07/22 History ondansetron 4 mg disintegrating 4 mg PO Q6H PRN Nausea And 06/23/22 08/07/22 Rx tablet Vomiting #30 tabs insulin NPH isoph U-100 human 100 10 unit subcut HS 07/31/22 07/31/22 History unit/mL subcutaneous suspension (Humulin N NPH U-100 Insulin (isophane susp)) sertraline 50 mg tablet 50 mg PO DAILY 07/31/22 08/07/22 History Laboratory Tests 08/07/22 08/07/22 08/07/22 16:31 16:32 16:32 WBC 10.5 K/mm3 H K/mm3 (4.5-10.0) RBC 4.66 M/mm3 M/mm3 (4.2-5.4) Hgb 11.5 g/dL L g/dL (12.0-15.0) Hct 36.8 % L % (37.0-47.0) MCV 79.0 fl L fl (80-100) MCH 24.7 pg L pg (26-34) MCHC 31.3 g/dl L g/dl (32-36) RDW 17.1 % H % (11.5-14.5) Plt Count 303 k/mm3 k/mm3 (150-375) MPV 11.0 fl H fl (7.4-10.4) Immature Gran % (Auto) 2.5 % H % (0-0.5) Neut % (Auto) 73.9 % H % (45.5-73.1) Lymph % (Auto) 17.0 % L % (18.3-44.2) [place] % (Auto) 5.3 % % (2.6-8.5) Eos % (Auto) 0.9 % % (0-4.4) Baso % (Auto) 0.4 % % (0.2-1.2) Lymph # (Auto) 1.78 K/mm3 K/mm3 (0.9-3.2) [place] # (Auto) 0.6 K/mm3 K/mm3 (0.1-0.6) Eos # (Auto) 0.1 K/mm3 K/mm3 (0-0.3) Baso # (Auto) 0.0 K/mm3 K/mm3 (0.0-0.1) Abs Immat Gran (auto) 0.26 K/mm3 H K/mm3 (0.00-0.031) Absolute Neuts (auto) 7.8 K/mm3 H K/mm3 (1.3-6.7) Absolute Nucleated RBC 0.0 K/mm3 K/mm3 (0.0-0.012) Nucleated RBC % 0.0 % % (0.0-0.2) Sodium Potassium Chloride Carbon Dioxide Anion Gap BUN Creatinine Estim Creat Clear Calc Estimated GFR Glucose POC Capillary Glucose Calcium Total Bilirubin AST ALT Alkaline Phosphatase Total Protein Albumin Cholic Acid Deoxycholic Acid Chenodeoxycholic Acid Total Bile Acids RPR Pending Blood Type O Positive Antibody Screen Pending 08/07/22 08/07/22 08/07/22 16:32 17:13 17:56 WBC RBC Hgb Hct MCV MCH MCHC RDW Plt Count MPV Immature Gran % (Auto) Neut % (Auto) Lymph % (Auto) [place] % (Auto) Eos % (Auto) Baso % (Auto) Lymph # (Auto) [place] # (Auto) Eos # (Auto) Baso # (Auto) Abs Immat Gran (auto) Absolute Neuts (auto) Absolute Nucleated RBC Nucleated RBC % Sodium 135 mmol/L L mmol/L (137-145) Potassium 4.1 mmol/L mmol/L (3.4-5.0) Chloride 114 mmol/L H mmol/L (98-107) Carbon Dioxide 14 mmol/L L mmol/L (22-30) Anion Gap 7 mmol/L L mmol/L (8-16) BUN 14 mg/dL mg/dL (7-17) Creatinine 0.80 mg/dL mg/dL (0.7-1.0) Estim Creat Clear Calc 75 ml/mi
--- NOTE | 2022-08-07 18:33 | PM.IMHP ---
H&P: HPI History of Present Illness Date/Time: 08/07/22 18:33 Chief Complaint: R CS Narrative: Hayde is a 42yo at 36.5 with two prior CS and severe cholestasis wit bile acids of 75, recalcitrant pruritis, and decreased FM for 2-3 days. otherwise complicated by hyperemesis, A2GDM, and AMA. She also requests sterilization with her repeat CS. Review of Systems Review of Systems: All systems reviewed & are unremarkable except as noted in HPI and below PMFSH Past Medical History Medical History Sciatica Seasonal allergies Strain of lumbar region Surgical History Surgical History Hx of section Hx of cholecystectomy Family History Family History Father Diabetes mellitus Polycystic kidney disease Social History Social History Smoking status: Never smoker Alcohol intake: never Substance use: never Substance use type: does not use Lack of Transportation: No Lack of Food: Never True Current Housing: I Have Housing Concerned About Future Housing: No Difficulty Paying Gas/Electric Bills: No Difficulty Paying for Meds: No Currently Unemployed: No Education: Decline to Answer Difficulty w/ Childcare or Family Care: No Gender identity (if verbalized by the patient): Female Sexual Orientation (if Verbalized by the Patient): Straight or Heterosexual Spiritual care concerns: No Meds Home Medications and Allergies Home Medications Medication Instructions Recorded Confirmed Type metoclopramide HCl 10 mg tablet 10 mg PO Q6H PRN Nausea 06/23/22 08/07/22 History ondansetron 4 mg disintegrating 4 mg PO Q6H PRN Nausea And 06/23/22 08/07/22 Rx tablet Vomiting #30 tabs insulin NPH isoph U-100 human 100 10 unit subcut HS 07/31/22 07/31/22 History unit/mL subcutaneous suspension (Humulin N NPH U-100 Insulin (isophane susp)) sertraline 50 mg tablet 50 mg PO DAILY 07/31/22 08/07/22 History Allergies Allergy/AdvReac Type Severity Reaction Status Date / Time No Known Allergies Allergy Verified 07/31/22 15:53 Vital Signs Vital Signs - 24 hr 08/07/22 16:49 08/07/22 17:00 08/07/22 18:14 Pulse Rate 87 89 82 Blood Pressure 121/76 121/79 132/82 Exam Const: General: no acute distress Resp: Effort & Inspection: normal respiratory effort Auscultation: clear to auscultation bilaterally Cardio: Rate: regular rate Rhythm: regular rhythm GI: GI Palp: Yes Soft to palpation Extrem: General: normal to inspection H&P: Results Labs Labs: Short CBC 08/07/22 Range/Units 16:31 WBC 10.5 H (4.5-10.0) K/mm3 Hgb 11.5 L (12.0-15.0) g/dL Hct 36.8 L (37.0-47.0) % Plt Count 303 (150-375) k/mm3 BMP 08/07/22 17:13 Sodium 135 L Potassium 4.1 Chloride 114 H Carbon Dioxide 14 L BUN 14 Creatinine 0.80 Glucose 67 Calcium 9.0 Liver Function 08/07/22 Range/Units 17:13 Total Bilirubin 0.4 (0.2-1.3) mg/dL AST 64 H (14-36) U/L ALT 142 H (6-35) U/L Alkaline Phosphatase 212 H (38-126) U/L Albumin 3.1 L (3.5-5.1) g/dL Assessment and Plan Assessment and plan (1) Cholestasis during : Code(s): O26.619 - Liver and biliary tract disorders in , unspecified trimester; K83.1 - Obstruction of bile duct Status: Acute (2) History of delivery: Code(s): Z98.891 - History of uterine scar from previous surgery Status: Acute (3) Request for sterilization: Code(s): Z30.2 - Encounter for sterilization Status: Acute Plan R CS today for severe cholestasis with decreased FM at 36+w salpingectomy with R CS pt consented, discussed RBA< questions answered.
--- NOTE | 2022-08-07 18:41 | WPDHPUPDATE1 ---
History and Physical Update Update Date/Time: 08/07/22 18:41 History and Physical has been reviewed, including an updated exam of the patient. There are NO changes in the patient's condition. Risks, benefits, and alternatives have been discussed and questions answered. Patient agrees to proceed with procedure.
--- NOTE | 2022-08-07 20:32 | PM.OBPRVD ---
OB - Delivery Note Procedure Delivery date: 08/07/22 Procedure: Procedures Operation Date: 08/07/22 20:00 <No data on this case meets the specified criteria> Repeat low transverse section and bilateral salpingectomy Events: Gestational Diabetes, Previous Delivery and Other (cholestasis of ) Route of delivery: Specimen: Yes (placenta) Quantitative Blood Loss (ml): 850 Anesthesia type: Spinal Disposition: Floor Complications: none Narrative: The patient was taken to the OR and received spinal anesthesia. She was placed in dorsal supine position with left lateral tilt. SCDs and carmona were placed. She was prepped and draped in the normal sterile fashion. A Pfannensteil skin incision was made and carried through to the underlying layer of fascia. The fascia was incised in the midline and then extended laterally using Agudelo scissors. The muscles were in the midline and the peritoneum was entered bluntly. The peritoneal incision was extended inferiorly and superiorly with care to avoid the bladder. The bladder blade was then inserted, the vesicouterine peritoneum was grasped, incised with Metzenbaum scissors, and a bladder flap created. The bladder blade was reinserted. A low transverse uterine incision was made with a scalpel and extended with bandage scissors. AROM was performed and fluid was noted to have moderate meconium. The head was delivered, followed by the remainder of the baby. The baby was vigorous and the oropharynx was suctioned. After 30 seconds, the cord was clamped and cut and the infant was handed off. Cord blood was obtained and the placenta was then removed manually. The uterus was exteriorized. A moist lap sponge was used to curette the endometrium. The uterine incision was then closed with two layers of 0-Vicryl in a running, locking fashion. Good hemostasis was noted. I then turned attention to the tubes. Using the Ligasure, the right tube was removed by sequentially clamping, cauterizing, and cutting the tube free from the cornua and the broad ligament. Similarly, the left tube was removed. The posterior cul de sac was irrigated with normal saline and cleared of all clot and debris. The uterus was returned to the abdomen. Both lateral gutters were then irrigated. The rectus muscles were inspected and found to be hemostatic. The fascia was reapproximated using 0-Vicryl in running fashion. The subcutaneous tissue was irrigated with normal saline and made hemostatic with Bovie electrocautery. The skin was then closed with absorbable merlin. Steri strips and a bandage were applied. The uterus was evacuated. The patient tolerated the procedure very well. All counts were correct. She was taken to the recovery room in good condition. [place] Baby Date of : 08/07/22 Time of : 19:32 Weeks of gestation at delivery: 36 Infant gender: Male Weight (pounds): 6 Weight (ounces): 14 presentation: vertex Placenta delivery description: Manual Removal Cord Vessel Description: 3 Vessels, Nuchal Cord and Delayed Cord Clamping score one minute: 8 score five minutes: 9
[2022-08-07] MEDS: ursodioL 300 MG CAPSULE 500 MG PO (21:56)
[2022-08-07] MEDS: fentaNYL CITRATE INJ (*CRX) 100 MCG/2 ML VIAL 25 MCG IV PUSH ×2 (22:03→22:37)
[2022-08-07 22:19] LABS: Glucose Point of Care 74 mg/dl (65-105)
[2022-08-07 22:19] LABS: Glucose Point of Care 63 mg/dl (65-105)
[2022-08-07 22:19] LABS: Glucose Point of Care 66 mg/dl (65-105)
--- NOTE | 2022-08-07 23:12 | OBPPTRN ---
Patient transferred to post room #287 via stretcher. Support person present. Oriented to unit, room, information board, rooming in, admission packet and security measures. Patient verbalizes understanding.
[2022-08-08] MEDS: diphenhydrAMINE HCl CAP 25 MG CAPSULE PO ×4 (00:11→21:04)
[2022-08-08] MEDS: HYDROcodone/acetaminophen (*CRX) 10-325 MG TABLET 1 TAB PO ×3 (00:42→21:04)
[2022-08-08 03:30] VITALS: BP 116/72; PULSE 84; RESP 18; TEMP 36.8; O2SAT 99
[2022-08-08] MEDS: HYDROcodone/acetaminophen (*CRX) 5-325 MG TABLET 1 TAB PO ×3 (03:32→12:25)
[2022-08-08] MEDS: KETOROLAC 30 MG/ML VIAL (*BKC) IV PUSH (03:32)
[2022-08-08] MEDS: KCL 20 MEQ/D5/0.45% SOD CHL 1,000 ML 125 ML IV CONT (04:38)
[2022-08-08 05:29] LABS: Basophils Absolute Auto 0.1 K/mm3 (0.0-0.1); Basophils Percent Auto 0.4 % (0.2-1.2); Eosinophils Absolute Auto 0.1 K/mm3 (0-0.3); Eosinophils Percent Auto 0.5 % (0-4.4); Hematocrit 32.1 % (37.0-47.0); Hemoglobin 10.2 g/dL (12.0-15.0); Immature Granulocyte Absolute 0.18 K/mm3 (0.00-0.031); Immature Granulocyte Percent A 1.4 % (0-0.5); Lymphocytes Absolute Auto 1.65 K/mm3 (0.9-3.2); Lymphocytes Percent Auto 13.1 % (18.3-44.2); Mean Corpuscular HGB Conc 31.8 g/dl (32-36); Mean Corpuscular Hemoglobin 25.1 pg (26-34); Mean Corpuscular Volume 79.1 fl (80-100); Mean Platelet Volume 11.7 fl (7.4-10.4); Monocytes Absolute Auto 0.6 K/mm3 (0.1-0.6); Neutrophils Absolute Auto 10.1 K/mm3 (1.3-6.7); Neutrophils Percent Auto 79.6 % (45.5-73.1); Platelet Count Result 250 k/mm3 (150-375); Red Blood Count 4.06 M/mm3 (4.2-5.4); Red Cell Distribution Width 16.8 % (11.5-14.5); White Blood Count 12.6 K/mm3 (4.5-10.0)
--- NOTE | 2022-08-08 07:56 | PM.OBPNVD ---
OB - PN: Subj Subjective Date/time seen: 08/08/22 07:56 Patient comments: no complaints and pain well controlled baby status: bottle feeding well [place] feeding status: exclusively bottle feeding Narrative: Doing well. Normal lochia. Eating, ambulating, carmona in. Itching a lot. OB - PN: Obj Data Labs 08/08/22 03:37 08/07/22 17:13 Labs: Laboratory Results - last 24 hr 08/07/22 08/07/22 08/07/22 16:31 16:32 17:13 WBC 10.5 H RBC 4.66 Hgb 11.5 L Hct 36.8 L MCV 79.0 L MCH 24.7 L MCHC 31.3 L RDW 17.1 H Plt Count 303 MPV 11.0 H Immature Gran % (Auto) 2.5 H Neut % (Auto) 73.9 H Lymph % (Auto) 17.0 L [place] % (Auto) 5.3 Eos % (Auto) 0.9 Baso % (Auto) 0.4 Lymph # (Auto) 1.78 [place] # (Auto) 0.6 Eos # (Auto) 0.1 Baso # (Auto) 0.0 Abs Immat Gran (auto) 0.26 H Absolute Neuts (auto) 7.8 H Absolute Nucleated RBC 0.0 Nucleated RBC % 0.0 Sodium 135 L Potassium 4.1 Chloride 114 H Carbon Dioxide 14 L Anion Gap 7 L BUN 14 Creatinine 0.80 Estim Creat Clear Calc 75 Estimated GFR > 60 Glucose 67 POC Capillary Glucose Calcium 9.0 Total Bilirubin 0.4 AST 64 H ALT 142 H Alkaline Phosphatase 212 H Total Protein 6.0 L Albumin 3.1 L Blood Type O Positive Antibody Screen Negative 08/07/22 08/07/22 08/07/22 17:56 18:31 19:01 WBC RBC Hgb Hct MCV MCH MCHC RDW Plt Count MPV Immature Gran % (Auto) Neut % (Auto) Lymph % (Auto) [place] % (Auto) Eos % (Auto) Baso % (Auto) Lymph # (Auto) [place] # (Auto) Eos # (Auto) Baso # (Auto) Abs Immat Gran (auto) Absolute Neuts (auto) Absolute Nucleated RBC Nucleated RBC % Sodium Potassium Chloride Carbon Dioxide Anion Gap BUN Creatinine Estim Creat Clear Calc Estimated GFR Glucose POC Capillary Glucose 63 L 63 L 74 Calcium Total Bilirubin AST ALT Alkaline Phosphatase Total Protein Albumin Blood Type Antibody Screen 08/07/22 08/08/22 20:15 03:37 WBC 12.6 H RBC 4.06 L Hgb 10.2 L Hct 32.1 L MCV 79.1 L MCH 25.1 L MCHC 31.8 L RDW 16.8 H Plt Count 250 MPV 11.7 H Immature Gran % (Auto) 1.4 H Neut % (Auto) 79.6 H Lymph % (Auto) 13.1 L [place] % (Auto) 5.0 Eos % (Auto) 0.5 Baso % (Auto) 0.4 Lymph # (Auto) 1.65 [place] # (Auto) 0.6 Eos # (Auto) 0.1 Baso # (Auto) 0.1 Abs Immat Gran (auto) 0.18 H Absolute Neuts (auto) 10.1 H Absolute Nucleated RBC 0.0 Nucleated RBC % 0.0 Sodium Potassium Chloride Carbon Dioxide Anion Gap BUN Creatinine Estim Creat Clear Calc Estimated GFR Glucose POC Capillary Glucose 66 Calcium Total Bilirubin AST ALT Alkaline Phosphatase Total Protein Albumin Blood Type Antibody Screen OB - PN A/P Plan day: 1 Plan: routine care Comments: routine post op care. continue ursodiol for itching, also benadryl circumcision today, consented Time Spent With Patient Time: Total time spent is greater than 50% in coordination of care (as documented) at patient's floor/unit and/or counseling patient: Exam Narrative: NAD abdomen soft, appropriately tender, incision bandaged Extremities nontender with 1+ edema
[2022-08-08 08:15] VITALS: BP 107/70; PULSE 83; RESP 20; TEMP 36.5; O2SAT 97
[2022-08-08] MEDS: DOCUSATE SODIUM 100 MG CAPSULE PO ×2 (08:51→15:24)
[2022-08-08] MEDS: ursodioL 300 MG CAPSULE 600 MG PO ×2 (08:51→20:56)
--- NOTE | 2022-08-08 08:59 | WPDANLDPN2 ---
Anes-Prog Note L&D Date/Time: 08/08/22 08:59 Comfortable throughout: section Neuraxial method: spinal Epidural/Spinal procedure site: clean & non-tender Neuro status: Neuro function grossly intact. Cardiovascular status: normal Respiratory status: normal Airway patency: baseline Mental status: baseline Post-Op hydration status: normal Vital Signs: Last Vital Signs Temp 97.7 F 08/08/22 08:15 Pulse 83 08/08/22 08:15 Resp 20 08/08/22 08:15 BP 107/70 08/08/22 08:15 Pulse Ox 97 08/08/22 08:15 O2 Del Method Room Air 08/08/22 03:30 Pain score (VAS): 4 I/O: Intake & Output 08/07/22 08/08/22 08/08/22 23:59 07:59 15:59 Intake Total 1000 300 600 Output Total 1075 650 100 Balance -75 -350 500 Post-procedural complaints: pruritis severe, treatment refractory Patient feedback: Patient satisfied with anesthetic care.
--- NOTE | 2022-08-08 08:59 | WPDANLDNPN2 ---
Anes-Prog Note L&D-Neuraxial Date/Time: 08/08/22 08:59 Neuraxial medications: intrathecal PF morphine Opiod-related complaints: pruritis severe, treatment refractory Patient feedback: Patient satisfied with post-operative pain management.
[2022-08-08 09:18] LABS: Glucose Point of Care 72 mg/dl (65-105)
--- NOTE | 2022-08-08 09:53 | PC.NURSE ---
On 08/08/22, the student, Carley Colbert, provided care and completed [facility] documentation on this patient. I have reviewed the student's documentation and agree with the findings.
[2022-08-08 10:55] LABS: Rapid Plasma Reagin Non-Reactive (NonReactive)
[2022-08-08 11:55] VITALS: BP 99/66; PULSE 74; RESP 16; TEMP 37.3; O2SAT 96
[2022-08-08 16:15] VITALS: BP 129/82; PULSE 87; RESP 18; TEMP 36.1; O2SAT 96
[2022-08-08] MEDS: IBUPROFEN 600 MG TABLET PO (17:48)
[2022-08-08 21:08] VITALS: BP 127/76; PULSE 94; RESP 18; TEMP 36.9; O2SAT 97
[2022-08-09] MEDS: IBUPROFEN 600 MG TABLET PO ×4 (01:31→22:32)
[2022-08-09] MEDS: HYDROcodone/acetaminophen (*CRX) 10-325 MG TABLET 1 TAB PO ×3 (01:33→09:28)
[2022-08-09] MEDS: diphenhydrAMINE HCl CAP 25 MG CAPSULE PO ×2 (06:26→12:34)
[2022-08-09 07:40] VITALS: BP 103/62; PULSE 79; RESP 16; TEMP 37.4; O2SAT 98
--- NOTE | 2022-08-09 08:15 | PM.OBPNVD ---
OB - PN: Subj Subjective Date/time seen: 08/09/22 08:15 Patient comments: no complaints, pain well controlled, incisional pain, tolerating diet and flatus present OB - PN: Obj Data Labs 08/08/22 03:37 08/07/22 17:13 Labs: Laboratory Results - last 24 hr 08/07/22 08/08/22 16:32 09:15 POC Capillary Glucose 72 RPR Non-reactive OB - PN A/P Plan day: 2 Plan: routine care Comments: POD#2 LTCS - no problems, Time Spent With Patient Time: Total time spent is greater than 50% in coordination of care (as documented) at patient's floor/unit and/or counseling patient: Exam Const: General: comfortable, no acute distress and alert Resp: Effort & Inspection: normal respiratory effort Auscultation: no crackles, no rales and no rhonchi Cardio: Rate: regular rate Heart sounds: no click, no murmurs and no rubs GI: Inspection: non-distended GI Palp: No Tenderness to palpation present (GI) Auscultation: normal bowel sounds Other: Incision - CDI Extrem: General: normal to inspection, no pedal edema and no calf tenderness
[2022-08-09] MEDS: SIMETHICONE 80 MG TAB.CHEW PO ×4 (09:28→22:31)
[2022-08-09] MEDS: SERTRALINE HCL 50 MG TABLET PO (09:29)
[2022-08-09] MEDS: DOCUSATE SODIUM 100 MG CAPSULE PO ×2 (09:29→17:37)
[2022-08-09] MEDS: MULTIVIT/MIN/PREN/FOL AC/IRON TABLET 1 TAB PO (09:29)
[2022-08-09] MEDS: ursodioL 300 MG CAPSULE 600 MG PO ×2 (09:29→22:31)
[2022-08-09] MEDS: HYDROcodone/acetaminophen (*CRX) 5-325 MG TABLET 1 TAB PO ×3 (12:34→22:31)
[2022-08-09 19:43] VITALS: BP 118/70; PULSE 90; RESP 18; TEMP 36.9; O2SAT 97
[2022-08-10] MEDS: HYDROcodone/acetaminophen (*CRX) 5-325 MG TABLET 1 TAB PO ×2 (02:01→08:37)
[2022-08-10] MEDS: diphenhydrAMINE HCl CAP 25 MG CAPSULE PO (02:01)
--- NOTE | 2022-08-10 07:06 | P.PNOB_ITS ---
OB - PN: Subj Subjective Date/time seen: 08/10/22 07:06 Patient comments: no complaints and pain well controlled baby status: doing well and bottle feeding well [place] feeding status: exclusively bottle feeding OB - PN: Obj Data Labs 08/08/22 03:37 08/07/22 17:13 OB - PN A/P Plan day: 3 Plan: routine care and discharge home Time Spent With Patient Time: Total time spent is greater than 50% in coordination of care (as documented) at patient's floor/unit and/or counseling patient: Exam Narrative: NAD abdomen soft, appropriately tender, incision CDI Extremities nontender with 1+ edema
--- NOTE | 2022-08-10 07:12 | PM.OBDSVD ---
DS: Admitting Diagnosis Discharge Date 08/10/22 Admitting Diagnosis IUP, cholestasis DS: Discharge Diagnosis Discharge Diagnosis (1) delivery delivered: Code(s): O82 - Encounter for delivery without indication Status: Acute (2) Request for sterilization: Code(s): Z30.2 - Encounter for sterilization Status: Acute (3) Cholestasis during : Code(s): O26.619 - Liver and biliary tract disorders in , unspecified trimester; K83.1 - Obstruction of bile duct Status: Acute (4) History of delivery: Code(s): Z98.891 - History of uterine scar from previous surgery Status: Acute OB - DS: Summary Hospital Course Hospital Course: Hayde was admitted at 36.5 for repeat CS and steriliization. She had severe cholestasis of with decreased movement. She had 2 prior CS and desired sterilization. her was uncomplicated and her course was as well. She was DCed home on POD 3. OB Procedures : NST and Ultrasound OB Procedures Intrapartum: and Tubal ligation OB Procedures: : None Peripartum Data Delivery Method: Section Procedures: Procedures Operation Date: 08/07/22 20:00 Actual Procedure Side Surgeon p Repeat Section with Bilateral Salpingectomy Clarisa Anne MD complications: none Status at Discharge Functional status at discharge: independent ambulation Time Spent with Patient Time attestation: Total time spent providing and/or coordinating discharge services: Exam Narrative: NAD abdomen soft, appropriately tender, incision CDI DS: Data Data Completed and Pending Pending studies at discharge: Pending at discharge 08/07/22 21:00 Surgical [PTH] Routine Surgical [PTH] Routine Discharge Plan Discharge Attending physician on discharge: Clarisa Anne Discharging Clinician: Clarisa Anne Anticipated Discharge Date/Time: 08/10/22 07:07 Patient Disposition: Home, Self-Care Activity: pelvic rest Diet: regular Patient Instructions: Antibiotic Form Stand Alone Forms: General Discharge Information Follow-up/Referrals: Clarisa Anne MD [Physician] - 1 Week Discharge Medications: New hydrocodone-acetaminophen 5-325 mg Tablet 1 tablet PO Q4-5H PRN (Reason: Moderate Pain (4-6)) Qty: 30 0RF docusate sodium 100 mg Capsule 100 mg PO BID PRN (Reason: Constipation) Qty: 60 0RF ibuprofen 600 mg Tablet 600 mg PO Q6H PRN (Reason: Cramping) Qty: 60 0RF Continued sertraline 50 mg Tablet 50 mg PO DAILY Discontinued metoclopramide HCl 10 mg tablet 10 mg PO Q6H PRN (Reason: Nausea) ondansetron 4 mg Tablet,Disintegrating 4 mg PO Q6H PRN (Reason: Nausea And Vomiting) Qty: 30 1RF Humulin N NPH U-100 Insulin 100 unit/mL Suspension 10 unit SUBCUT HS Date of admission: 08/07/22 15:59 Primary Care Provider: UNKNOWN,DOCTOR Admitting Provider: Clarisa Anne Attending physician on admission: Clarisa Anne Condition: Stable
[2022-08-10 08:15] VITALS: BP 123/74; PULSE 92; RESP 18; TEMP 36.7; O2SAT 98
[2022-08-10] MEDS: SERTRALINE HCL 50 MG TABLET PO (08:36)
[2022-08-10] MEDS: IBUPROFEN 600 MG TABLET PO (08:36)
[2022-08-10] MEDS: DOCUSATE SODIUM 100 MG CAPSULE PO (08:36)
[2022-08-10] MEDS: MULTIVIT/MIN/PREN/FOL AC/IRON TABLET 1 TAB PO (08:36)
[2022-08-10] MEDS: ursodioL 300 MG CAPSULE 600 MG PO (08:38)
[2022-08-17 15:42] LABS: Chenodeoxycholic Acid 10.4 umol/L (< OR = 3.9); Cholic Acid 17.5 umol/L (< OR = 2.8); Deoxycholic Acid 0.8 umol/L (< OR = 2.3); Total Bile Acids 28.7 umol/L (< OR = 8.3)
== END 2022-08-10 14:34 | disposition home or self-care (01) | DRG 540 ==
LOC: ANHLDR 16:04 → ANHOB2 23:48
PROVIDERS: Admitting Provider Obstetrics & Gynecology; Visit Provider Obstetrics & Gynecology
DX: O26.62 Liver and biliary tract disorders in childbirth (principal); K83.1 Obstruction of bile duct; Z37.0 Single live birth; Z3A.36 36 weeks gestation of pregnancy; O24.429 Gestational diabetes mellitus in childbirth, unspecified control; O34.211 Maternal care for low transverse scar from previous cesarean delivery; Z30.2 Encounter for sterilization; O36.8130 Decreased fetal movements, third trimester, not applicable or unspecified; O69.81X0 Labor and delivery complicated by cord around neck, without compression, not applicable or unspecified; O77.0 Labor and delivery complicated by meconium in amniotic fluid; O43.193 Other malformation of placenta, third trimester; L29.8 Other pruritus; O99.72 Diseases of the skin and subcutaneous tissue complicating childbirth
CPT/HCPCS: 36415; 80053; 82542; 82948; 85025; 86592; 86850; 86900; 86901; 88302; 88307; A9270; J1200; J1885; J2274; J2370; J2405; J2590; J3010; J3480; J7120

== ENCOUNTER 2022-11-06 09:00 | Outpatient (RCR) | payer OTHER, SELFPAY | END 2022-11-06 23:59 | disposition home or self-care (01) | LOC: ANHAUDIO 09:00 | DX: Z46.1 Encounter for fitting and adjustment of hearing aid (principal) | CPT/HCPCS: 99199 ==

== ENCOUNTER 2024-01-11 11:42 | Emergency (ER) | payer OTHER, SELFPAY ==
--- NOTE | ~2024-01-11 | XR_ITS ---
XR foot LT min 3V DATE: 01/11/2024 11:57 INDICATION: Rolled ankle. Lateral foot pain TECHNIQUE: Portable 4 view examination COMPARISON: None FINDINGS: There is a linear oblique intra-articular nondisplaced fracture of the base of the fifth me tatarsal bone. No other fracture or dislocation. No periosteal reaction or bone destruction. IMPRESSION: Linear oblique nondisplaced intra-articular fracture of the base of the fifth metatarsal bone Reviewed, dictated and finalized at location A.
[2024-01-11 11:41] VITALS: BP 106/95; PULSE 77; RESP 17; TEMP 36.4; O2SAT 98
[2024-01-11 12:01] VITALS: BP 109/69; PULSE 68; RESP 14; O2SAT 98
[2024-01-11 12:16] VITALS: BP 103/64; O2SAT 98
[2024-01-11 12:31] VITALS: BP 106/76; PULSE 77; RESP 15; O2SAT 99
[2024-01-11] MEDS: HYDROcodone/acetaminophen (*CRX) 5-325 MG TABLET 1 TAB PO (12:41)
--- NOTE | 2024-01-11 12:57 | ED.LOWEXIN ---
HPI - Extremity Injury (Lower) General Chief Complaint: Extremity Injury, Lower Stated Complaint: ANKLE FOOT INJURY & PAIN S/P FALL Time Seen by Provider: 01/11/24 11:45 Source: patient Mode of arrival: EMS Limitations: no limitations History of Present Illness HPI Narrative: 43-year-old otherwise healthy was brought in by EMS from home with the complaints of left foot pain, patient states that her dog ran over a foot he has an he is unable to bear weight complaint: foot injury Onset (ago): hour(s) (1) Type of Injury: blunt Place: home Severity: moderate Relieving factors: immobilization and rest Exacerbating factors: weight bearing Other symptoms: none Related Data Home Medications Medication Instructions Recorded Confirmed sertraline 50 mg tablet 50 mg PO DAILY 07/31/22 08/07/22 Allergies Allergy/AdvReac Type Severity Reaction Status Date / Time No Known Allergies Allergy Verified 01/11/24 11:47 Review of Systems Review of Systems: All systems reviewed & are unremarkable except as noted in HPI and below Constitutional: Constitutional: Reports no additional constitutional complaints Eyes: Eyes: Reports no additional eye complaints ENT: Reports system reviewed and no additional complaints, except as documented Cardiovascular: Cardiovascular: Reports no additional cardiovascular complaints Respiratory: Respiratory: Reports no additional respiratory complaints Musculoskeletal: Musculoskeletal: Reports as per HPI Integumentary/Breasts: Skin/Breast: Reports system reviewed and no additional complaints, except as docu Neurologic: Reports system reviewed and no additional complaints, except as documented PMFSH Past Medical History Medical History Sciatica Seasonal allergies Strain of lumbar region Surgical History Surgical History Hx of section Hx of cholecystectomy Family History Family History Father Diabetes mellitus Polycystic kidney disease Social History Social History Smoking status: Never smoker Alcohol intake: never Substance use: never Substance use type: does not use Lack of Transportation: No Lack of Food: Never True Current Housing: I Have Housing Concerned About Future Housing: No Difficulty Paying Gas/Electric Bills: No Difficulty Paying for Meds: No Currently Unemployed: No Education: Decline to Answer Difficulty w/ Childcare or Family Care: No Gender identity (if verbalized by the patient): Female Sexual Orientation (if Verbalized by the Patient): Straight or Heterosexual Spiritual care concerns: No Exam Narrative: GENERAL: Well-appearing, well-nourished, and in no acute distress. HEAD: Normocephalic, atraumatic. EYES: PERRLA and EOMI. ENT: Nares clear, no rhinorrhea or epistaxis. Mucous membranes moist. NECK: Supple. CHEST: Clear to auscultation. No respiratory distress. HEART: Regular rate and rhythm. No murmur heard. Normal peripheral pulses. ABDOMEN: Soft, nontender, nondistended, normal active bowel sounds. EXTREMITIES: Normal range of motion. No edema. No obvious deformity of the left foot SKIN: Warm, dry, no rash. NEURO: No focal deficits. Alert and oriented x3. PSYCH: Normal mood and affect. Course Course Emergency Course: Notified patient about her x-ray findings. Advised to follow with orthopedic doctor Vital Signs Vital signs: Vital Signs Temperature 36.4 C 01/11/24 11:41 Pulse Rate 77 01/11/24 11:41 Respiratory Rate 17 01/11/24 11:41 Blood Pressure 106/95 H 01/11/24 11:41 Pulse Oximetry 98 01/11/24 11:41 Oxygen Delivery Room Air 01/11/24 11:41 Temperature 36.4 C 01/11/24 11:41 Pulse Rate 77 01/11/24 12:31 Respiratory Rate 15 01/11/24 12:31 Blood Pres
== END 2024-01-11 13:24 | disposition home or self-care (01) ==
PROVIDERS: Emergency Provider Family Medicine
DX: S92.355A Nondisplaced fracture of fifth metatarsal bone, left foot, initial encounter for closed fracture (principal); Z90.49 Acquired absence of other specified parts of digestive tract; W54.1XXA Struck by dog, initial encounter
CPT/HCPCS: 73630; 99283; A9270